=== PATIENT | female | born 1960 | race Caucasian/White ===

== ENCOUNTER 2020-03-31 12:46 | Outpatient (RCR) | payer OTHER ==
[~2020-03-31 12:46] MED LIST: BUPROPION HCL100 MG PO; CALCIUM500 MG PO; CYCLOBENZAPRINE10 MG PO; FOLIC ACID1 MG PO; LOSARTAN POTAS100 MG PO; MELOXICAM7.5 MG PO; METHOTREXATE2.5 MG PO; METHYLPREDNISOL40 MG PO; NORCO 7.5-3251 EACH PO; PRAMIPEXOLE DIHY1 MG PO; VITAMIN D31000 UNI1 PO
== END 2020-04-01 ==
LOC: WCC 12:46
PROVIDERS: ATTEND Family Medicine Adult Medicine
DX: I87.2 Venous insufficiency (chronic) (peripheral) (principal); R60.0 Localized edema; I89.0 Lymphedema, not elsewhere classified; M06.4 Inflammatory polyarthropathy; M17.9 Osteoarthritis of knee, unspecified; L84 Corns and callosities

== ENCOUNTER → 2020-04-05 | Outpatient (CLI) | payer OTHER | LOC: RAD 09:12 | PROVIDERS: ATTEND Family Medicine Adult Medicine | DX: I87.2 Venous insufficiency (chronic) (peripheral) (principal) | CPT/HCPCS: 93925; 93970 ==

== ENCOUNTER → 2020-04-07 | Outpatient (CLI) | payer OTHER | LOC: WCC 09:00 | PROVIDERS: ATTEND Family Medicine Adult Medicine | DX: I89.0 Lymphedema, not elsewhere classified (principal); M06.4 Inflammatory polyarthropathy; M17.9 Osteoarthritis of knee, unspecified; R60.0 Localized edema; L84 Corns and callosities ==

== ENCOUNTER → 2020-04-11 | Outpatient (CLI) | payer OTHER | LOC: WCC 09:00 | PROVIDERS: ATTEND Family Medicine Adult Medicine | DX: L89.92 Pressure ulcer of unspecified site, stage 2 (principal); I89.0 Lymphedema, not elsewhere classified; M06.4 Inflammatory polyarthropathy; R60.0 Localized edema; M17.9 Osteoarthritis of knee, unspecified ==

== ENCOUNTER → 2020-04-14 | Outpatient (CLI) | payer OTHER | LOC: WCC 08:00 | PROVIDERS: ATTEND Family Medicine Adult Medicine | DX: L89.92 Pressure ulcer of unspecified site, stage 2 (principal); I89.0 Lymphedema, not elsewhere classified; M06.4 Inflammatory polyarthropathy; M17.9 Osteoarthritis of knee, unspecified; R60.0 Localized edema ==

== ENCOUNTER → 2020-04-19 | Outpatient (CLI) | payer OTHER | LOC: WCC 09:00 | PROVIDERS: ATTEND Family Medicine Adult Medicine | DX: L89.92 Pressure ulcer of unspecified site, stage 2 (principal); I89.0 Lymphedema, not elsewhere classified; M06.4 Inflammatory polyarthropathy; M17.9 Osteoarthritis of knee, unspecified; R60.0 Localized edema ==

== ENCOUNTER → 2020-04-21 | Outpatient (CLI) | payer OTHER | LOC: WCC 08:00 | PROVIDERS: ATTEND Family Medicine Adult Medicine | DX: L89.92 Pressure ulcer of unspecified site, stage 2 (principal); S51.802A Unspecified open wound of left forearm, initial encounter; I89.0 Lymphedema, not elsewhere classified; M06.4 Inflammatory polyarthropathy; R60.0 Localized edema; M17.9 Osteoarthritis of knee, unspecified ==

== ENCOUNTER → 2020-04-25 | Outpatient (CLI) | payer OTHER | LOC: WCC 09:00 | PROVIDERS: ATTEND Family Medicine Adult Medicine | DX: L89.92 Pressure ulcer of unspecified site, stage 2 (principal); S51.802A Unspecified open wound of left forearm, initial encounter; I89.0 Lymphedema, not elsewhere classified; M06.4 Inflammatory polyarthropathy; M17.9 Osteoarthritis of knee, unspecified; R60.0 Localized edema; W51.XXXA Accidental striking against or bumped into by another person, initial encounter ==

== ENCOUNTER → 2020-04-29 | Outpatient (CLI) | payer OTHER | LOC: WCC 04-27 09:00 | PROVIDERS: ATTEND Family Medicine Adult Medicine | DX: L89.92 Pressure ulcer of unspecified site, stage 2 (principal); S51.802A Unspecified open wound of left forearm, initial encounter; I89.0 Lymphedema, not elsewhere classified; M06.4 Inflammatory polyarthropathy; M17.9 Osteoarthritis of knee, unspecified; R60.0 Localized edema; W51.XXXA Accidental striking against or bumped into by another person, initial encounter ==

== ENCOUNTER → 2020-05-02 | Outpatient (RCR) | payer OTHER ==
[~2020-05-02] MED LIST changes: +AMMONIUM LACTATE 12% LOTION 225GM BTL ONE; +LIDOCAINE/PRILOCAINE 2.5-2.5% KIT ONE; +MINERAL OIL/PETROLAT/GLYCERI 6OZ BTL ONE
== END ==
LOC: WCC 04-04 14:37
PROVIDERS: ATTEND Family Medicine Adult Medicine
DX: I89.0 Lymphedema, not elsewhere classified (principal); M06.4 Inflammatory polyarthropathy; M17.9 Osteoarthritis of knee, unspecified; R60.0 Localized edema; L84 Corns and callosities

== ENCOUNTER → 2020-05-02 | Outpatient (CLI) | payer OTHER ==
[~2020-05-02] MED LIST changes: -AMMONIUM LACTATE 12% LOTION 225GM BTL ONE; -LIDOCAINE/PRILOCAINE 2.5-2.5% KIT ONE; -MINERAL OIL/PETROLAT/GLYCERI 6OZ BTL ONE
== END ==
LOC: WCC 10:00
PROVIDERS: ATTEND Family Medicine Adult Medicine
DX: L89.92 Pressure ulcer of unspecified site, stage 2 (principal); S51.802A Unspecified open wound of left forearm, initial encounter; I89.0 Lymphedema, not elsewhere classified; M06.4 Inflammatory polyarthropathy; M17.9 Osteoarthritis of knee, unspecified; R60.0 Localized edema; W51.XXXA Accidental striking against or bumped into by another person, initial encounter

== ENCOUNTER → 2020-05-05 | Outpatient (CLI) | payer OTHER ==
[~2020-05-05] MED LIST changes: +MINERAL OIL/PETROLAT/GLYCERI 2OZ CRM ONE; +MINERAL OIL/PETROLAT/GLYCERI 6OZ BTL ONE
== END ==
LOC: EDSTATUS 12:07 → WCC 14:05
PROVIDERS: ATTEND Family Medicine Adult Medicine
DX: L89.92 Pressure ulcer of unspecified site, stage 2 (principal); S51.802A Unspecified open wound of left forearm, initial encounter; I89.0 Lymphedema, not elsewhere classified; M06.4 Inflammatory polyarthropathy; M17.9 Osteoarthritis of knee, unspecified; R60.0 Localized edema; W51.XXXA Accidental striking against or bumped into by another person, initial encounter

== ENCOUNTER → 2020-05-05 | Outpatient (CLI) | payer OTHER ==
[~2020-05-05] MED LIST changes: -MINERAL OIL/PETROLAT/GLYCERI 2OZ CRM ONE; -MINERAL OIL/PETROLAT/GLYCERI 6OZ BTL ONE
== END ==
LOC: WCC 09:00
PROVIDERS: ATTEND Family Medicine Adult Medicine
DX: L89.92 Pressure ulcer of unspecified site, stage 2 (principal); S51.802A Unspecified open wound of left forearm, initial encounter; M06.4 Inflammatory polyarthropathy; R60.0 Localized edema; I89.0 Lymphedema, not elsewhere classified; M17.9 Osteoarthritis of knee, unspecified; W51.XXXA Accidental striking against or bumped into by another person, initial encounter

== ENCOUNTER → 2020-05-10 | Outpatient (CLI) | payer OTHER | LOC: WCC 09:00 | PROVIDERS: ATTEND Family Medicine Adult Medicine | DX: S51.802A Unspecified open wound of left forearm, initial encounter (principal); M06.4 Inflammatory polyarthropathy; R60.0 Localized edema; I89.0 Lymphedema, not elsewhere classified; M17.9 Osteoarthritis of knee, unspecified; W51.XXXA Accidental striking against or bumped into by another person, initial encounter ==

== ENCOUNTER → 2020-05-12 | Outpatient (CLI) | payer OTHER | LOC: WCC 08:00 | PROVIDERS: ATTEND Family Medicine Adult Medicine | DX: S51.802A Unspecified open wound of left forearm, initial encounter (principal); M06.4 Inflammatory polyarthropathy; R60.0 Localized edema; I89.0 Lymphedema, not elsewhere classified; M17.9 Osteoarthritis of knee, unspecified; W51.XXXA Accidental striking against or bumped into by another person, initial encounter ==

== ENCOUNTER → 2022-10-03 | Day surgery (SDC) | payer BC, OTHER ==
[~2022-10-03] MED LIST changes: +FENTANYL CITRATE/PF 100MCG/2 ML INJ ONE; +GLYCOPYRROLATE INJ 0.2 MG/ML VIAL ONE; +HYDROCHLOROTHIA25 MG PO; +LIDOCAINE HCL 2% LOCAL INJ 5 ML SDV VIAL INJ ONE; +METOCLOPRAMIDE HCL 10 MG/2ML VIAL ONE; +MIDAZOLAM HCL 2 MG/2 ML VIAL ONE; +PLAQUENIL200 MG PO; +POVIDONE IODINE 0.05% 0.05 % ML PO ONE; +PROPOFOL IV EMULSION 10 MG/ML 20 ML VIAL ONE
[2022-10-03 16:00] VITALS: BP 114/63
== END | disposition home or self-care (01) ==
LOC: OR 11:35
PROVIDERS: ATTEND Internal Medicine Gastroenterology
DX: K29.70 Gastritis, unspecified, without bleeding (principal); K25.9 Gastric ulcer, unspecified as acute or chronic, without hemorrhage or perforation; K20.90 Esophagitis, unspecified without bleeding; K21.9 Gastro-esophageal reflux disease without esophagitis; K44.9 Diaphragmatic hernia without obstruction or gangrene; Z98.84 Bariatric surgery status; K59.09 Other constipation; Z71.3 Dietary counseling and surveillance; I10 Essential (primary) hypertension; Z71.89 Other specified counseling; E03.9 Hypothyroidism, unspecified; R53.1 Weakness; M41.9 Scoliosis, unspecified; M06.9 Rheumatoid arthritis, unspecified; M19.90 Unspecified osteoarthritis, unspecified site; F32.A Depression, unspecified; F41.9 Anxiety disorder, unspecified; Z79.899 Other long term (current) drug therapy; Z68.30 Body mass index [BMI] 30.0-30.9, adult; Z86.2 Personal history of diseases of the blood and blood-forming organs and certain disorders involving the immune mechanism
CPT/HCPCS: 43239; C9113; J2001; J2250; J2704; J2765; J3010

== ENCOUNTER → 2022-12-20 | Day surgery (SDC) | payer BC, OTHER ==
[~2022-12-20] MED LIST changes: -GLYCOPYRROLATE INJ 0.2 MG/ML VIAL ONE; +LACTATED RINGER'S 1,000 ML ONE; -MIDAZOLAM HCL 2 MG/2 ML VIAL ONE; +PROLIA60 MG/1 ML SC
[2022-12-20 16:35] VITALS: BP 125/75
== END | disposition home or self-care (01) ==
LOC: OR 11:49
PROVIDERS: ATTEND Internal Medicine Gastroenterology
DX: K25.9 Gastric ulcer, unspecified as acute or chronic, without hemorrhage or perforation (principal); K29.70 Gastritis, unspecified, without bleeding; K44.9 Diaphragmatic hernia without obstruction or gangrene; R19.8 Other specified symptoms and signs involving the digestive system and abdomen; K59.09 Other constipation; Z98.84 Bariatric surgery status; Z71.3 Dietary counseling and surveillance; D64.9 Anemia, unspecified; I10 Essential (primary) hypertension; M06.9 Rheumatoid arthritis, unspecified; E03.9 Hypothyroidism, unspecified; M81.0 Age-related osteoporosis without current pathological fracture; Z01.810 Encounter for preprocedural cardiovascular examination; Z79.899 Other long term (current) drug therapy; Z86.16 Personal history of COVID-19
CPT/HCPCS: 43239; 93005; C9113; J2001; J2704; J2765; J3010; J7121